=== PATIENT | male | born 1960 | race Caucasian/White ===

== ENCOUNTER → 2018-05-20 | Day surgery (SDC) | payer OTHER ==
[~2018-05-20] VITALS: Ht 170.2 cm; Wt 97.1 kg
[~2018-05-20] MED LIST: ASPIRIN EC81 M1 PO; CLOPIDOGREL75 M1 PO; CO Q-10200 MG PO; DRISTAN15 ML NASB; FISH OIL 1,0001 EAC4 PO; LISINOPRIL40 M1 PO; MULTIVITAMINS1 EAC9 PO; OMEPRAZOLE40 M1 PO; TOPROL XL25 M1 PO; TURMERIC500 M2 PO; VITAMIN E100 UNI2 PO
--- NOTE | 2018-05-20 11:05 | Operative Report ---
Operative/Inv Procedure Report Surgery Date: 05/20/18 Name of Procedure: right ESWL Pre-Operative Diagnosis: right UPJ stone 9mm Post-Operative Diagnosis: same Estimated Blood Loss: scant Surgeon/Director Clinical Pharmacology: Lorelei Arndt MD Anesthesia: local monitored anesthesi Complications: none Condition: stable Operative Indication: right renal colic Operative/Procedure Note Note: 57yo male with a recent hx of painless gross hematuria following PT for muscle weakness (etiology not know yet possibly AE from statin?) He has seen gross hematuria only after passing stones in the past (2x). He denies any irritative urinary sx of frequency, nocturia, urgency or dysuria. He has no voiding complaints and no urinary incontinence. He has a hx of kidney stones x2 in the past which passed spontaneously. He was found to have 9mm UPJ stone in the right kidney with intermittent pain. Patient was given the risks, benefits and alternatives of the ESWL and consent was signed. All questions were answered. Patient was brought to the operating room and placed on the operating table in the supine position. Timeout was performed and IV antibiotics were given. He was optimally positioned. ESWL was started with 250 shocks at power 1-12, then 250 shocks at power 13-17, then 200 shocks at power 18-19 and finally 1800 shocks at power of 20 for a total of 2500 shocks. Patient tolerated the procedure well. He was transferred to the recovery room in stable condition. Findings: 9mm UPJ stone that was visibly changed after the ESWL procedure Discharge Disposition: Same Day Admissions
== END ==
LOC: STS 01:21
DX: N20.2 Calculus of kidney with calculus of ureter (principal); I10 Essential (primary) hypertension; E03.9 Hypothyroidism, unspecified; E11.8 Type 2 diabetes mellitus with unspecified complications; Z79.84 Long term (current) use of oral hypoglycemic drugs; Z79.82 Long term (current) use of aspirin; Z98.61 Coronary angioplasty status; Z87.442 Personal history of urinary calculi
CPT/HCPCS: J0690